=== PATIENT | female | born 1995 | race Two or more races ===

== ENCOUNTER 2017-01-20 07:15 | Emergency (ER) | payer SELFPAY ==
[~2017-01-20] VITALS: Ht 160 cm; Wt 52.2 kg
--- NOTE | 2017-01-20 07:34 | NUR ---
PT TO ED ROOM 07. PT BIB FAMILY "DRANK ALCOHOL LAST NIGHT" +N/V SINCE 4AM. A/A/O. VS WNL. CHANGED TO GOWN. SIDE RAISL UP. HOB ELEVATED. CONENCTED TO MONITOR. AWAITING EVALUATION BY ER PROVIDER.
--- NOTE | 2017-01-20 07:45 | NUR ---
Roberto PUENTE. BLOOD TESTS DRAWN AND SEND TO LAB.
[2017-01-20] MEDS ORDERED: ONDANSETRON HCL/PF 4 MG/2 ML VIAL ONE (07:49)
[2017-01-20] MEDS ORDERED: IV NS 0.9% 1,000 ML ONE (07:49)
[2017-01-20] MEDS ORDERED: IV SET PRIMARY 1 EA INFUS.SET MC ONE (07:49)
[2017-01-20] MEDS ORDERED: ONDANSETRON HCL/PF 4 MG/2 ML VIAL IVP ONE (08:00)
[2017-01-20] MEDS ORDERED: IV NS 0.9% 1,000 ML BAG IV ONE (08:00)
--- NOTE | 2017-01-20 08:00 | NUR ---
PT UNABLE TO PROVIDE URINE SAMPLE AT THIS TIME. PATIENTS IS UNABLE TO WALK TO THE BATHROOM SECONDARY TO ALCOHOL INTOXICATION. WILL TRY LATER.
[2017-01-20 08:01] LABS: BASOPHILS % (AUTO) 0.1 % (0.0-2.0); EOSINOPHILS % (AUTO) 0.3 % (0.0-6.0); HEMATOCRIT 43 % (33-45); HEMOGLOBIN 14.3 g/dL (11.5-14.8); LYMPHOCYTES # (AUTO) 2.1 /CMM (0.8-4.8); LYMPHOCYTES % (AUTO) 20.7 % (20.0-44.0); MEAN CORPUSCULAR HEMOGLOBIN 32 PG (26.0-33.0); MEAN CORPUSCULAR HGB CONC 34 g/dl (31.0-36.0); MEAN CORPUSCULAR VOLUME 94 fL (82-100); MONOCYTES # (AUTO) 0.3 /CMM (0.1-1.30); MONOCYTES % (AUTO) 3.1 % (2.0-12.0); NEUTROPHILS # (AUTO) 7.5 /CMM (1.8-8.9); NEUTROPHILS % (AUTO) 75.8 % (43.0-81.0); PLATELET COUNT (AUTO) 351 /CMM (150-450); RDW COEFFICIENT OF VARIATION 13.7 (11.5-15.0); RED BLOOD CELL COUNT(AUTO) 4.55 MIL/uL (4.0-5.2); WHITE BLOOD COUNT (AUTO) 9.9 K/uL (4.3-11.0)
[2017-01-20 08:16] LABS: ALBUMIN 4.1 g/dL (3.4-5.0); BILIRUBIN,DIRECT 0.1 mg/dL (0.0-0.2); BILIRUBIN,TOTAL 0.4 mg/dL (0.2-1.0); CALCIUM, SERUM 9.1 mg/dL (8.5-10.1); SALICYLATE 3.4 mg/dL (2.8-20.0); TOTAL PROTEIN, SERUM 7.9 g/dL (6.4-8.2)
[2017-01-20] MEDS ORDERED: METOCLOPRAMIDE HCL 10 MG/2 ML VIAL ONE (08:27)
[2017-01-20] MEDS ORDERED: LORAZEPAM INJ 2 MG/ML VIAL ONE (08:27)
[2017-01-20] MEDS ORDERED: METOCLOPRAMIDE HCL 10 MG/2 ML VIAL IV ONE (08:30)
[2017-01-20] MEDS ORDERED: LORAZEPAM INJ 2 MG/ML VIAL IV ONE (08:30)
--- NOTE | 2017-01-20 09:05 | NUR ---
Patient is resting comfortably in bed with eyes closed. Easily aroused. VSS
--- NOTE | 2017-01-20 10:08 | NUR ---
Patient is resting comfortably in bed with eyes closed. Easily aroused. VSS
[2017-01-20 12:09] VITALS: BP 107/60
--- NOTE | 2017-01-20 12:09 | NUR ---
Patient is resting comfortably in bed with eyes closed. Easily aroused. VSS
--- NOTE | 2017-01-20 12:59 | NUR ---
Patient discharged to home in stable condition. Written and verbal after care instructions given. Patient verbalizes understanding of instruction.IV removed. Catheter intact and site benign. Pressure and 4x4 applied to site. No bleeding noted. NAD. VS WNL.
== END 2017-01-20 12:59 | disposition home or self-care (01) ==
LOC: ER 07:16
DX: R41.82 Altered mental status, unspecified (principal); F10.10 Alcohol abuse, uncomplicated; F17.200 Nicotine dependence, unspecified, uncomplicated; F14.10 Cocaine abuse, uncomplicated
CPT/HCPCS: 36415; 80048; 80076; 80329; 84703; 85025; 96361; 96374; 96375; 99284; G0480 ×2; J2060; J2405; J2765; J7030; Z7610; A4606; G6039-TC

== ENCOUNTER 2021-07-15 11:47 | Emergency (ER) | payer MEDICAID ==
[~2021-07-15] VITALS: Ht 160 cm; Wt 52.2 kg
[2021-07-15 12:13] VITALS: BP 120/62
--- NOTE | 2021-07-15 12:28 | NUR ---
[employer] AT PT'S BEDSIDE
[2021-07-15] MEDS ORDERED: IBUPROFEN 600 MG TABLET ONE (13:11)
[2021-07-15] MEDS ORDERED: IBUPROFEN 600 MG TABLET PO ONE (13:30)
--- NOTE | 2021-07-15 13:50 | NUR ---
DR KENT AT BEDSIDE
[2021-07-15] MEDS ORDERED: IBUP-1955 PO (13:53)
[2021-07-15] MEDS ORDERED: TRAM50TA2 PO (13:53)
[2021-07-15] MEDS ORDERED: HYDROCODONE/APAP 5/325MG TABLET PO ONE (14:00)
--- NOTE | 2021-07-15 14:00 | NUR ---
BEATER TENDER AT BEDSIDE
[2021-07-15] MEDS ORDERED: HYDROCODONE/APAP 5/325MG TABLET ONE (14:01)
--- NOTE | 2021-07-15 14:08 | NUR ---
Patient discharged to home in stable condition. Written and verbal after care instructions given. Patient verbalizes understanding of instruction.
== END 2021-07-15 14:09 | disposition home or self-care (01) ==
LOC: ER 12:22
DX: S93.691A Other sprain of right foot, initial encounter (principal); F17.200 Nicotine dependence, unspecified, uncomplicated; X50.1XXA Overexertion from prolonged static or awkward postures, initial encounter; Y93.01 Activity, walking, marching and hiking; Y92.89 Other specified places as the place of occurrence of the external cause; Y99.8 Other external cause status
CPT/HCPCS: 73610-TC; 73630-TC

== ENCOUNTER 2022-10-13 15:50 | Emergency (ER) | payer MEDICAID ==
[~2022-10-13] VITALS: Ht 160 cm; Wt 55.3 kg
[~2022-10-13 15:50] MED LIST: IBUP-1955 PO; TRAM50TA2 PO
--- NOTE | 2022-10-13 16:12 | NUR ---
dr crawford at bedside
[2022-10-13] MEDS ORDERED: ACETAMINOPHEN ES 500 MG TABLET ONE (16:29)
[2022-10-13] MEDS ORDERED: FAMOTIDINE/PF INJ 20 MG/2 ML VIAL IV ONE ×2 (16:29→16:30)
[2022-10-13] MEDS ORDERED: ONDANSETRON HCL/PF 4 MG/2 ML VIAL ONE (16:29)
[2022-10-13] MEDS ORDERED: ACETAMINOPHEN ES 500 MG TABLET PO ONE (16:30)
[2022-10-13] MEDS ORDERED: IV NS 0.9% 1,000 ML BAG IV ONE (16:30)
[2022-10-13] MEDS ORDERED: ONDANSETRON HCL/PF 4 MG/2 ML VIAL IVP ONE (16:30)
[2022-10-13 16:44] LABS: BASOPHILS # (AUTO) 0.1 K/uL (0.0-0.2); BASOPHILS % (AUTO) 0.6 % (0.0-2.0); EOSINOPHILS % (AUTO) 0.1 % (0.0-6.0); HEMATOCRIT 45 % (33-45); HEMOGLOBIN 14.8 g/dL (11.5-14.8); LYMPHOCYTES # (AUTO) 1.6 K/uL (0.8-4.8); LYMPHOCYTES % (AUTO) 13.9 % (20.0-44.0); MEAN CORPUSCULAR HGB CONC 33 g/dl (31.0-36.0); MEAN CORPUSCULAR VOLUME 96 fL (82-100); MONOCYTES # (AUTO) 0.7 K/uL (0.1-1.30); MONOCYTES % (AUTO) 5.8 % (2.0-12.0); NEUTROPHILS % (AUTO) 79.6 % (43.0-81.0); PLATELET COUNT (AUTO) 343 K/uL (150-450); RED BLOOD CELL COUNT(AUTO) 4.68 MIL/uL (4.0-5.2); WHITE BLOOD COUNT (AUTO) 11.3 K/uL (4.3-11.0)
[2022-10-13 16:52] LABS: CALCIUM, SERUM 9.7 mg/dL (8.5-10.1); POTASSIUM 3.9 mmol/L (3.5-5.1)
[2022-10-13 16:59] LABS: ALBUMIN 4.5 g/dL (3.4-5.0); BILIRUBIN,DIRECT 0.2 mg/dL (0.0-0.2); BILIRUBIN,TOTAL 0.4 mg/dL (0.2-1.0); TOTAL PROTEIN, SERUM 8.2 g/dL (6.4-8.2)
--- NOTE | 2022-10-13 17:46 | NUR ---
CORRECTION: END TIME FOR IV NS FLUID IS AT [id number]
[2022-10-13 17:54] VITALS: BP 112/75
--- NOTE | 2022-10-13 17:54 | NUR ---
IV removed. Catheter intact and site benign. Pressure and 4x4 applied to site. No bleeding noted.
--- NOTE | 2022-10-13 17:54 | NUR ---
Patient discharged to home in stable condition. Written and verbal after care instructions given. Patient verbalizes understanding of instruction.
== END 2022-10-13 17:54 | disposition home or self-care (01) ==
LOC: ER 15:58
DX: R11.2 Nausea with vomiting, unspecified (principal)
CPT/HCPCS: 99284; 96374; 96361; 96375; 85025; 80048; 83690; 80076; 36415; 84702; J3490; J2405; J7030